=== PATIENT | female | born 1980 | race Caucasian/White ===

== ENCOUNTER 2017-01-26 20:28 | Emergency (ER) | payer MEDICAID ==
[~2017-01-26] VITALS: Ht 165.1 cm; Wt 86.4 kg
[2017-01-26 21:08] LABS: BASOPHILS % (AUTO) 0.4 % (0.0-2.0); EOSINOPHILS % (AUTO) 1.3 % (1.0-6.0); HEMATOCRIT 40.3 % (36-46); HEMOGLOBIN 13.4 g/dL (12.0-16.0); LYMPHOCYTES # (AUTO) 4.9 K/uL (1.0-4.8); LYMPHOCYTES % (AUTO) 44.9 % (22.0-44.0); MEAN CORPUSCULAR HEMOGLOBIN 30.5 pg (26.0-34.0); MEAN CORPUSCULAR HGB CONC 33.2 G/dL (31.0-37.0); MEAN CORPUSCULAR VOLUME 92 fL (80-100); MONOCYTES # (AUTO) 0.7 K/uL (0.1-1.0); MONOCYTES % (AUTO) 6.5 % (2.0-9.0); NEUTROPHILS # (AUTO) 5.1 K/uL (1.8-7.7); NEUTROPHILS % (AUTO) 46.9 % (40.0-70.0); PLATELET COUNT (AUTO) 300 K/uL (150-450); RED CELL DISTRIBUTION WIDTH 12.8 % (11.5-14.5); WHITE BLOOD COUNT (AUTO) 10.9 K/uL (4.5-11.0)
[2017-01-26 21:18] LABS: ANION GAP 5 mmol/L (8-16); CALCIUM, TOTAL 9.2 mg/dL (8.8-10.5); CARBON DIOXIDE 32 mmol/L (22-29); CHLORIDE 101 mmol/L (98-107); CREATININE 0.74 mg/dL (0.60-1.30); GLOMERULAR FILTR. RATE CALC > 60 mL/min (>60); SODIUM SERUM 138 mmol/L (136-145); UREA NITROGEN, BLOOD 15 mg/dL (7-18)
[2017-01-26 21:25] LABS: ALANINE AMINOTRANSFERASE 35 U/L (12-78); ASPARTATE AMINOTRANSFERASE 16 U/L (15-37); BILIRUBIN,TOTAL 0.1 mg/dL (0.1-1.0)
[2017-01-26 23:01] LABS: APPEARANCE,URINE CLEAR (CLEAR); GLUCOSE, URINE (UA) NEGATIVE (NEGATIVE); KETONES,URINE NEGATIVE (NEGATIVE); LEUKOCYTE ESTERASE ,URINE NEGATIVE (NEGATIVE); PROTEIN,URINE NEGATIVE (NEGATIVE)
[2017-01-26 23:13] LABS: ADD UA MICROSCOPIC NO; OCCULT BLOOD,URINE NEGATIVE (NEGATIVE)
[2017-01-26] MEDS ORDERED: DONNATAL/LIDOCAINE/MAALOX 55 ML BOTTLE PO ONE (23:30)
[2017-01-26 23:35] VITALS: BP 109/64
== END 2017-01-26 23:36 | disposition home or self-care (01) ==
LOC: EMS 20:30
DX: K29.70 Gastritis, unspecified, without bleeding (principal)
CPT/HCPCS: 36415; 80053; 81003; 81025; 83690; 85025; 99284; Z7610

== ENCOUNTER 2018-07-30 13:59 | Emergency (ER) | payer MEDICAID ==
[~2018-07-30] VITALS: Ht 160 cm; Wt 81.8 kg
[2018-07-30] MEDS ORDERED: DIAZEPAM 5 MG TABLET PO ONE (15:00)
[2018-07-30] MEDS ORDERED: KETOROLAC TROMETHAMINE 30 MG/ML VIAL IM ONE (15:00)
[2018-07-30 15:34] LABS: APPEARANCE,URINE TURBID (CLEAR); BILIRUBIN,URINE NEGATIVE (NEGATIVE); GLUCOSE, URINE (UA) NEGATIVE (NEGATIVE); KETONES,URINE NEGATIVE (NEGATIVE); LEUKOCYTE ESTERASE ,URINE NEGATIVE (NEGATIVE); NITRATE,URINE NEGATIVE (NEGATIVE); OCCULT BLOOD,URINE SMALL (NEGATIVE); PROTEIN,URINE NEGATIVE (NEGATIVE); UROBILINOGEN,URINE 0.2 mg/dL (<=1.0)
[2018-07-30 15:47] LABS: AMORPHOUS SEDIMENT,UR Many /LPF (None Seen); BACTERIA,URINE None Seen /HPF (None Seen); WBC,URINE None Seen /HPF (0-5)
[2018-07-30 16:20] VITALS: BP 112/72
== END 2018-07-30 17:01 | disposition home or self-care (01) ==
LOC: EMS 13:59
DX: M54.5 Low back pain (principal); M54.6 Pain in thoracic spine; Z90.49 Acquired absence of other specified parts of digestive tract
CPT/HCPCS: 81001; 84703; 96372; 99283; J1885

== ENCOUNTER 2021-09-15 08:32 | Emergency (ER) | payer MEDICAID ==
[~2021-09-15] VITALS: Ht 152.4 cm; Wt 89.1 kg
[2021-09-15] MEDS ORDERED: IBUPROFEN 600 MG TABLET PO ONE (10:45)
[2021-09-15 11:17] VITALS: BP 120/70
[2021-09-15] MEDS ORDERED: IBUP-2088 PO (12:02)
== END 2021-09-15 12:30 | disposition home or self-care (01) ==
LOC: EMS 08:36
DX: G57.62 Lesion of plantar nerve, left lower limb (principal)
CPT/HCPCS: 99283